=== PATIENT | female | born 1975 | race Caucasian/White ===

== ENCOUNTER → 2017-06-12 | Outpatient (CLI) | payer BC ==
[~2017-06-12] VITALS: Ht 170.2 cm; Wt 78.9 kg
[~2017-06-12] MED LIST: ESCI10TA2 PO; FISH1000 PO; LIDOCAINE 2% INJ 100 MG/5 ML SDV (FOR ANES.) As Ordered ONE; LOMO2.5T PO; MULT1TAB10 PO; NS 1,000 ML IV ONE; OMEP20CA3 PO; PROPOFOL 200 MG/20 ML VIAL As Ordered ONE; VITA100T PO
--- NOTE | 2017-06-12 09:53 | ROOR ---
Patient Name: Michelle Duncan Procedure Date: 06/12/2017 9:37 AM Date of : 1975 Age: 42 Room: [facility] Gender: Female Note Status: Finalized Procedure: Upper Endoscopy + Biopsies Indications: Heartburn Providers: Anhtony Joy MD Referring MD: Elias Ross MD Requesting Provider: Medicines: Monitored Anesthesia Care Complications: No immediate complications. Procedure: Pre-Anesthesia Assessment: - The heart rate, respiratory rate, oxygen saturations, blood pressure, adequacy of pulmonary ventilation, and response to care were monitored throughout the procedure. The Endoscope was introduced through the mouth, and advanced to the second part of duodenum. The upper GI endoscopy was accomplished without difficulty. The patient tolerated the procedure well. Findings: The Z-line was irregular and was found 40 cm from the incisors. Multiple biopsies were obtained with cold forceps for evaluation to rule out Phan's Esophagus randomly at the gastroesophageal junction. A medium-sized hiatal hernia was present. No other significant abnormalities were identified in a careful examination of the stomach. The exam of the duodenum was otherwise normal. Impression: - Z-line irregular, 40 cm from the incisors. - Medium-sized hiatal hernia. - Multiple biopsies were obtained at the gastroesophageal junction. - The examination was otherwise normal. Recommendation: - Patient has a contact number available for emergencies. The signs and symptoms of potential delayed complications were discussed with the patient. Return to normal activities tomorrow. Written discharge instructions were provided to the patient. - High fiber diet. - Discharge patient to home. - Follow an antireflux regimen. - Continue present medications. - Await pathology results. - Telephone GI clinic for pathology results in 1 week. - Repeat upper endoscopy for surveillance based on pathology results. - The findings and recommendations were discussed with the patient's family. Anthony Joy MD Anthony Joy MD 06/12/2017 9:52:47 AM This report has been signed electronically. Number of Addenda: 0 Note Initiated On: 06/12/2017 9:37 AM Estimated Blood Loss: Estimated blood loss: none.
--- NOTE | 2017-06-12 10:08 | ROOR ---
Patient Name: Michelle Duncan Procedure Date: 06/12/2017 9:38 AM Date of : 1975 Age: 42 Room: [facility] Gender: Female Note Status: Finalized Procedure: Total Colonoscopy to Cecum Indications: Colon cancer screening in patient at increased risk: Family history of 1st-degree relative with colon polyps Providers: Anthony Joy MD Referring MD: Elias Ross MD Requesting Provider: Medicines: Monitored Anesthesia Care Complications: No immediate complications. Procedure: Pre-Anesthesia Assessment: - The heart rate, respiratory rate, oxygen saturations, blood pressure, adequacy of pulmonary ventilation, and response to care were monitored throughout the procedure. The Colonoscope was introduced through the anus and advanced to the cecum, identified by appendiceal orifice and ileocecal valve. The colonoscopy was performed without difficulty. The patient tolerated the procedure well. The quality of the bowel preparation was excellent. Findings: The perianal and digital rectal examinations were normal. Non-bleeding internal hemorrhoids were found during retroflexion. The hemorrhoids were small and Grade I (internal hemorrhoids that do not prolapse). Multiple small and large-mouthed diverticula were found in the recto-sigmoid colon, sigmoid colon and descending colon. The exam was otherwise without abnormality on direct and retroflexion views. Impression: - Non-bleeding internal hemorrhoids. - Diverticulosis in the recto-sigmoid colon, in the sigmoid colon and in the descending colon. - The examination was otherwise normal on direct and retroflexion views. - No specimens collected. - The exam was otherwise normal to the cecum. Recommendation: - Patient has a contact number available for emergencies. The signs and symptoms of potential delayed complications were discussed with the patient. Return to normal activities tomorrow. Written discharge instructions were provided to the patient. - High fiber diet. - Discharge patient to home. - Continue present medications. - Repeat colonoscopy in 5 years for screening purposes. - Return to referring physician. - The findings and recommendations were discussed with the patient's family. Anthony Joy MD Anthony Joy MD 06/12/2017 10:08:26 AM This report has been signed electronically. Number of Addenda: 0 Note Initiated On: 06/12/2017 9:38 AM Estimated Blood Loss: Estimated blood loss: none.
[2017-06-12 10:30] VITALS: BP 127/61
== END | disposition home or self-care (01) ==
LOC: M OPP 08:40
PROVIDERS: ATTEND Internal Medicine Gastroenterology
DX: Z12.11 Encounter for screening for malignant neoplasm of colon (principal); K64.0 First degree hemorrhoids; K57.30 Diverticulosis of large intestine without perforation or abscess without bleeding; Z86.010 Personal history of colon polyps; R12 Heartburn; K22.8 Other specified diseases of esophagus; K44.9 Diaphragmatic hernia without obstruction or gangrene; K21.9 Gastro-esophageal reflux disease without esophagitis; K57.92 Diverticulitis of intestine, part unspecified, without perforation or abscess without bleeding; K58.9 Irritable bowel syndrome, unspecified; R13.10 Dysphagia, unspecified; R10.13 Epigastric pain; M19.90 Unspecified osteoarthritis, unspecified site; F41.9 Anxiety disorder, unspecified; G47.8 Other sleep disorders; G47.30 Sleep apnea, unspecified; R06.83 Snoring; F17.210 Nicotine dependence, cigarettes, uncomplicated; Z88.8 Allergy status to other drugs, medicaments and biological substances; Z79.899 Other long term (current) drug therapy; Z83.71 Family history of colonic polyps; Z80.3 Family history of malignant neoplasm of breast
CPT/HCPCS: 43239; 88305; G0105

== ENCOUNTER → 2019-07-08 | Outpatient (REF) | payer BC ==
[~2019-07-08] MED LIST changes: +CYAN100T5 PO; -LIDOCAINE 2% INJ 100 MG/5 ML SDV (FOR ANES.) As Ordered ONE; -NS 1,000 ML IV ONE; -OMEP20CA3 PO; +OMEP20CA4 PO; -PROPOFOL 200 MG/20 ML VIAL As Ordered ONE; -VITA100T PO
[2019-07-12 00:07] LABS: Lyme Disease IgG/IgM Antibodie <0.91 ISR (0.00-0.90); Lyme Disease IgM Ab Quantitati <0.80 index (0.00-0.79)
== END ==
LOC: M LAB REF 17:27
PROVIDERS: ATTEND Family Medicine
DX: Z11.59 Encounter for screening for other viral diseases (principal); R53.83 Other fatigue

== ENCOUNTER → 2020-08-21 | Outpatient (REF) | payer BC ==
[~2020-08-21] MED LIST changes: +CALC600T60 PO; +CYAN100T4 PO; -CYAN100T5 PO; +HYDR-3713 PO; +OMEP1CAP73 PO; -OMEP20CA4 PO
== END ==
LOC: M LAB REF 17:16
PROVIDERS: ATTEND Family Medicine
DX: D64.9 Anemia, unspecified (principal)

== ENCOUNTER → 2020-09-04 | Outpatient (CLI) | payer BC | LOC: M LABSMTC 11:26 | PROVIDERS: ATTEND Anesthesiology | DX: Z01.812 Encounter for preprocedural laboratory examination (principal); Z20.828 Contact with and (suspected) exposure to other viral communicable diseases | CPT/HCPCS: C9803; U0003 ==

== ENCOUNTER 2020-09-09 08:05 | Day surgery (SDC) | payer BC ==
[~2020-09-09] VITALS: Ht 170.2 cm; Wt 81.8 kg
[~2020-09-09 08:05] MED LIST changes: -HYDR-3713 PO; +LR 1,000 ML IV ONE; +ceFAZolin SOD 2 GM in IV 1 EA IV ONE
[2020-09-09] MEDS ORDERED: NS IV ONE (09:00)
[2020-09-09] MEDS ORDERED: DESMOPRESSIN ACETATE IV ONE (09:00)
[2020-09-09] MEDS ORDERED: LIDOCAINE 1% MDV 20ML VIAL As Ordered ONE (10:21)
[2020-09-09] MEDS ORDERED: BUPIVACAINE HCL 0.5% 30 ML VIAL As Ordered ONE (10:21)
[2020-09-09] MEDS ORDERED: dexameTHASONE 4 MG/ML 1ML VIAL (J1100 PER 1MG) As Ordered ONE (10:21)
[2020-09-09] MEDS ORDERED: MIDAZOLAM INJ 2MG/2ML VIAL (J2250 PER 1MG) As Ordered ONE (10:46)
[2020-09-09] MEDS ORDERED: propofoL 200 MG/20 ML VIAL As Ordered ONE ×3 (10:46→11:53)
[2020-09-09] MEDS ORDERED: fentaNYL 100 MCG/2 ML INJECTION (J3010) As Ordered ONE (10:46)
[2020-09-09] MEDS ORDERED: HYDR-3713 PO (12:06)
[2020-09-09 13:50] VITALS: BP 109/60
--- NOTE | 2020-09-10 14:02 | RO ---
DATE OF OPERATION: 09/09/2020 SURGEON: Benjy Guthrie DPM FORMING ROLL OPERATOR: None. PREOPERATIVE DIAGNOSIS: Left foot bunion, hallux valgus and 2nd hammertoe. POSTOPERATIVE DIAGNOSIS: Left foot bunion, hallux valgus and 2nd hammertoe. PROCEDURE: Left foot bunionectomy with 1st metatarsal osteotomy, [place] osteotomy and 2nd hammertoe correction. ANESTHESIA: Monitored anesthesia care. PREOPERATIVE INJECTION: 20 cc of a 1:1 mixture of 1% Lidocaine plain and 0.5% Marcaine plain. ESTIMATED BLOOD LOSS: Minimal. MATERIALS: Arthrex 3.5 headless compression screw, DynaNite staple, and Melvin Smart toe, 3-0 and 4-0 Vicryl, 4-0 nylon. INJECTABLES: 1 mL Decadron 4 mg/mL. COMPLICATIONS: None. CONDITION: Stable. INDICATIONS: The patient is a 45-year-old female who presents to [facility] with complaints of painful bunion and hammertoe. She presents today for surgical correction. The patient's side and site were identified and marked preoperative area. Consent was reviewed and obtained. The risks, complications, and alternatives to the procedure explained to the patient in detail and all questions were answered. PROCEDURE: The patient was brought to the operating room and placed on the operating room table in the supine position. Monitored anesthesia care was delivered by the anesthesia team. Preoperative injection of 20 cc of 1:1 mixture of 1% Lidocaine plain and 0.5% Marcaine plain were injected in the left foot. The left foot was prepped and draped in normal sterile fashion. The tourniquet was applied to the left ankle and inflated to 250 mmHg. A dorsal incision was carried through the 1st metatarsophalangeal joint and carried through with a #15 blade. Dissection was carried until the joint capsule was identified. Bovie was used to maintain hemostasis. T-capsulotomy was performed exposing the metatarsal head. Following this, a lateral release was performed releasing the adductor tendon, sesamoidal ligament, and lateral capsule. The McGlamry elevator was used to release the plantar structures. Following this, the medial eminence was resected with a sagittal saw and an osteotomy was performed of the metatarsal head transposing it laterally. This was fixated with an Arthrex 3.5 headless compression screw. The remaining bone ledge was resected with a sagittal saw and rasped. Attention was then paid to the proximal phalanx. A wedge of the medial cortex was removed using sagittal saw, fixated with an Arthrex DynaNite staple, improved position of the toe was noted. The site was irrigated with normal saline. A small wedge of capsule was removed from the medial capsule and capsular repair was performed with 3-0 Vicryl, subcutaneous with 4-0 Vicryl, and skin closure with 4-0 nylon. Attention was paid to the 2nd toe. Dorsal incision was carried out of proximal interphalangeal joint with #15 blade. Extensor tendon was transected at proximal interphalangeal joint level exposing the proximal phalanx head. Collateral ligaments were resected and the cartilage of the head of the proximal phalanx and base of the middle phalanx were resected with sagittal saw and Zmanda Smart toe inserted according to manufacture guidelines. Extensor tendon was then repaired with 3-0 Vicryl and dorsal capsulotomy was performed at the metatarsophalangeal joint. Closure was performed with 4-0 Vicryl. Sterile dressings were applied. The tourniquet was deflated. The patient was brought to the PACU with vital signs stable and neurovascular status intact. She will be partial weightbearing. She will follow up in the office in two days. NICOLASA
== END 2020-09-09 13:51 | disposition home or self-care (01) ==
LOC: M SDC 08:05
PROVIDERS: ATTEND Podiatrist Foot & Ankle Surgery
DX: M20.12 Hallux valgus (acquired), left foot (principal); M20.42 Other hammer toe(s) (acquired), left foot; M21.612 Bunion of left foot; E78.00 Pure hypercholesterolemia, unspecified; F32.9 Major depressive disorder, single episode, unspecified; F41.9 Anxiety disorder, unspecified; G47.30 Sleep apnea, unspecified; K21.9 Gastro-esophageal reflux disease without esophagitis; K58.8 Other irritable bowel syndrome; Z79.899 Other long term (current) drug therapy; Z85.3 Personal history of malignant neoplasm of breast; Z88.8 Allergy status to other drugs, medicaments and biological substances; D68.0 Von Willebrand disease
CPT/HCPCS: 28285; 28296; 28298; 88300; C1713; C1776; J0690; J1100; J2250; J2597; J3010

== ENCOUNTER 2020-12-19 18:29 | Emergency (ER) | payer BC ==
[~2020-12-19] VITALS: Ht 170.2 cm; Wt 85.9 kg
[~2020-12-19 18:29] MED LIST changes: +ESCI10TA16 PO; -ESCI10TA2 PO; +HYDR-3713 PO; -LR 1,000 ML IV ONE; -ceFAZolin SOD 2 GM in IV 1 EA IV ONE
[2020-12-19] MEDS ORDERED: NS 500 ML IV ONE (19:30)
[2020-12-19] MEDS ORDERED: ONDANSETRON 4MG/2ML VIAL IV ONE (19:30)
[2020-12-19] MEDS ORDERED: ISOVUE-370 76% 100ML VIAL As Ordered ONE (19:44)
[2020-12-19 19:48] LABS: BASO # 0.1 10^3/uL (0.0-0.2); BASO % 0.5 % (0.0-1.0); EOS # 0.1 10^3/uL (0.0-0.5); HEMATOCRIT 35.8 % (36.0-47.0); HEMOGLOBIN 11.4 g/dl (12.0-15.5); LYMPH # 3.9 10^3/uL (1.5-5.0); LYMPH % 27.2 % (24.0-44.0); MEAN CORPUSCULAR HEMOGLOBIN 28.5 pg (27.0-33.0); MEAN CORPUSCULAR HGB CONC 31.8 g/dl (32.0-36.5); MEAN CORPUSCULAR VOLUME 89.5 fl (80.0-96.0); MONO % 6.9 % (0.0-5.0); NEUTROPHILS # 9.1 10^3/uL (1.5-8.5); NEUTROPHILS % 63.5 % (36.0-66.0); PLATELET COUNT, AUTOMATED 388 10^3/uL (150-450); WHITE BLOOD COUNT 14.3 10^3/uL (4.0-10.0)
[2020-12-19 20:00] LABS: INR 0.94; PROTHROMBIN TIME 12.8 SECONDS (12.5-14.3)
[2020-12-19] MEDS ORDERED: MORPHINE 2 MG/ML 1ML VIAL (J2270) IV ONE (20:15)
[2020-12-19 20:18] LABS: ALBUMIN 4.1 GM/DL (3.2-5.2); ALT/SGPT 43 U/L (12-78); AMYLASE 49 U/L (25-115); BILIRUBIN,DIRECT < 0.1 MG/DL (0.0-0.2); BILIRUBIN,TOTAL 0.1 MG/DL (0.2-1.0); CK-MB VALUE MASS 1.2 NG/ML (<3.6); CPK CREATINE PHOSPHOKINASE 127 U/L (26-192); ETHYL ALCOHOL (ETHANOL) 0.024 % (0.000-0.010); LIPASE 126 U/L (73-393); MB/CK RELATIVE INDEX 0.94 (< OR =4); TOTAL PROTEIN 7.3 GM/DL (6.4-8.2); TROPONIN I < 0.02 NG/ML (< 0.10)
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
[2020-12-19] MEDS ORDERED: MORPHINE 4 MG/ML 1ML VIAL/SYRINGE (J2270) IV ONE (21:30)
[2020-12-19] MEDS ORDERED: METOCLOPRAMIDE INJ 10MG/2ML VIAL (J2765 PER 1) IV ONE (22:30)
[2020-12-19 22:45] VITALS: BP 97/49
--- NOTE | 2020-12-20 19:56 | ECGEPIP ---
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
== END 2020-12-19 22:56 | disposition short-term general hospital (02) ==
LOC: M ED 18:29
DX: S06.6X9A Traumatic subarachnoid hemorrhage with loss of consciousness of unspecified duration, initial encounter (principal); S42.001A Fracture of unspecified part of right clavicle, initial encounter for closed fracture; S22.41XA Multiple fractures of ribs, right side, initial encounter for closed fracture; S06.9X9A Unspecified intracranial injury with loss of consciousness of unspecified duration, initial encounter; M47.812 Spondylosis without myelopathy or radiculopathy, cervical region; K43.9 Ventral hernia without obstruction or gangrene; F10.129 Alcohol abuse with intoxication, unspecified; F17.200 Nicotine dependence, unspecified, uncomplicated; Z79.899 Other long term (current) drug therapy; Z88.8 Allergy status to other drugs, medicaments and biological substances
CPT/HCPCS: 70450; 71260; 72125; 72128; 72131; 73030; 74177; 80047; 80076; 82150; 82550; 82553; 83605; 83690; 84484; 85025; 85610; 85730; 86850; 86900; 86901; 93005; 93041; 94760; 96361; 96374; 96375; 96376; 99285; G0480; J2270; J2405; J2765; Q9967

== ENCOUNTER → 2022-08-03 | Outpatient (CLI) | payer BC ==
[~2022-08-03] MED LIST changes: +ATEN25TA PO; +ESCI5SOL3 PO
== END ==
LOC: M LABSMTC 09:25
PROVIDERS: ATTEND Anesthesiology
DX: Z01.818 Encounter for other preprocedural examination (principal); Z11.52 Encounter for screening for COVID-19

== ENCOUNTER 2022-08-08 07:40 | Day surgery (SDC) | payer BC ==
[~2022-08-08] VITALS: Ht 170.2 cm; Wt 80.9 kg
[~2022-08-08 07:40] MED LIST changes: +LIDOCAINE 2% 100MG/5ML SDV (FOR ANES.) As Ordered ONE; +NS 1,000 ML IV ONE; +propofoL 200 MG/20 ML VIAL As Ordered ONE
[2022-08-08 09:59] VITALS: BP 129/63
== END 2022-08-08 10:06 | disposition home or self-care (01) ==
LOC: M OPP 07:40
PROVIDERS: ATTEND Internal Medicine Gastroenterology
DX: Z12.11 Encounter for screening for malignant neoplasm of colon (principal); Z86.010 Personal history of colon polyps; Z83.71 Family history of colonic polyps; K64.0 First degree hemorrhoids; K57.30 Diverticulosis of large intestine without perforation or abscess without bleeding; K22.89 Other specified disease of esophagus; I10 Essential (primary) hypertension; D68.0 Von Willebrand disease; F41.9 Anxiety disorder, unspecified; G47.30 Sleep apnea, unspecified; Z79.899 Other long term (current) drug therapy; Z88.6 Allergy status to analgesic agent; Z85.3 Personal history of malignant neoplasm of breast; Z87.891 Personal history of nicotine dependence

== ENCOUNTER → 2023-05-31 | Outpatient (REF) | payer BC ==
[~2023-05-31] MED LIST changes: -LIDOCAINE 2% 100MG/5ML SDV (FOR ANES.) As Ordered ONE; -NS 1,000 ML IV ONE; -propofoL 200 MG/20 ML VIAL As Ordered ONE
[2023-05-31 18:22] LABS: C REACTIVE PROTEIN QUANTITATIV < 0.40 MG/DL (<1.0)
[2023-05-31 18:23] LABS: CPK CREATINE PHOSPHOKINASE 133 U/L (34-145)
[2023-05-31 18:24] LABS: RHEUMATOID FACTOR QUANT < 3.5 IU/ML (<14)
[2023-06-02 17:07] LABS: ALDOLASE 3.2 U/L (3.3-10.3); ANTINUCLEAR ANTIBODIES DIRECT Negative (Negative)
== END ==
LOC: M LAB REF 16:42
PROVIDERS: ATTEND Family Medicine
DX: R53.83 Other fatigue (principal); D68.00 Von Willebrand disease, unspecified

== ENCOUNTER → 2023-06-13 | Outpatient (CLI) | payer BC | LOC: M WUC 14:48 | PROVIDERS: ATTEND Family Medicine | DX: R06.02 Shortness of breath (principal); Z86.16 Personal history of COVID-19 ==

== ENCOUNTER → 2023-11-01 | Day surgery (SDC) | payer BC ==
[~2023-11-01] VITALS: Ht 170.2 cm; Wt 88.5 kg
[~2023-11-01] MED LIST changes: +ACETAMINOPHEN 1000MG 100ML IV BAG As Ordered ONE; +BUPR1TAB52 PO; +KETOROLAC 60MG 2ML VIAL As Ordered ONE; +KP F1200 PO; +LIDOCAINE 1% SDV 30ML VIAL As Ordered ONE; +LIDOCAINE 2% 100MG/5ML SDV (FOR ANES.) As Ordered ONE; +LR 1,000 ML IV SCH; +MIDAZOLAM INJ 2MG/2ML VIAL As Ordered ONE; +MULT-90 PO; +ONDANSETRON 4MG 2ML VIAL As Ordered ONE; +ceFAZolin SOD 2 GM in IV 1 EA IV ONE; +fentaNYL 100 MCG/2 ML INJECTION As Ordered ONE; +propofoL 200 MG/20 ML VIAL As Ordered ONE
[2023-11-01 11:29] VITALS: BP 131/66; TEMP 97.1; O2SAT 94
== END | disposition home or self-care (01) ==
LOC: M SDC 06:51
PROVIDERS: ATTEND Podiatrist Foot & Ankle Surgery
DX: M20.11 Hallux valgus (acquired), right foot (principal); M21.611 Bunion of right foot; I10 Essential (primary) hypertension; D68.00 Von Willebrand disease, unspecified; G47.30 Sleep apnea, unspecified; Z79.899 Other long term (current) drug therapy; Z85.3 Personal history of malignant neoplasm of breast; Z88.6 Allergy status to analgesic agent
CPT/HCPCS: 28299; C1713; J0131; J0665; J0690; J1100; J2250; J2405; J3010

== ENCOUNTER → 2025-06-26 | Outpatient (REF) | payer BC ==
[~2025-06-26] MED LIST changes: -ACETAMINOPHEN 1000MG 100ML IV BAG As Ordered ONE; +ATOR1TAB19 PO; +BUPR-670 PO; -BUPR1TAB52 PO; +COLA100C5 PO; -KETOROLAC 60MG 2ML VIAL As Ordered ONE; +LEXA1TAB2 PO; -LIDOCAINE 1% SDV 30ML VIAL As Ordered ONE; -LIDOCAINE 2% 100MG/5ML SDV (FOR ANES.) As Ordered ONE; -LR 1,000 ML IV SCH; -MIDAZOLAM INJ 2MG/2ML VIAL As Ordered ONE; +MIRA3350 PO; +OMEP40CA5 PO; -ONDANSETRON 4MG 2ML VIAL As Ordered ONE; +PERCOCET PO; +SENN-186 PO; +TIRZ2.5P SC; +[UNRECOGNIZED DRUG - CODE] TOP; -ceFAZolin SOD 2 GM in IV 1 EA IV ONE; -fentaNYL 100 MCG/2 ML INJECTION As Ordered ONE; -propofoL 200 MG/20 ML VIAL As Ordered ONE
[2025-06-26 13:09] LABS: IRON (FE) 59 UG/DL (50-170); PERCENT SATURATION 16.4 % (13.2-45.0)
[2025-06-26 13:12] LABS: VITAMIN B12 LEVEL 1099 PG/ML (211-911)
== END ==
LOC: M LAB REF 12:36
PROVIDERS: ATTEND Family Medicine
DX: D64.9 Anemia, unspecified (principal)

== ENCOUNTER → 2025-07-09 | Outpatient (CLI) | payer BC ==
[~2025-07-09] MED LIST changes: +ISOVUE-370 76% 100 ML VIAL As Ordered ONE
== END ==
LOC: M RAD 16:53
PROVIDERS: ATTEND Family Medicine
DX: R51.9 Headache, unspecified (principal)
CPT/HCPCS: 70470; Q9967

== ENCOUNTER → 2025-08-19 | Outpatient (CLI) | payer BC ==
[~2025-08-19] MED LIST changes: +E-Z-GAS II EFFERVESCENT PACKET (SODIUM BICARB./CITRIC ACID/SIMETHICONE) As Ordered ONE; +E-Z-HD 98% w/w 340 GM SUSP BTL As Ordered ONE; +E-Z-PAQUE 96% w/w SUSP 176 GM BTL As Ordered ONE; -ISOVUE-370 76% 100 ML VIAL As Ordered ONE
== END ==
LOC: M RAD 08:20
PROVIDERS: ATTEND Family Medicine
DX: R13.19 Other dysphagia (principal)